=== PATIENT | female | born 1975 | race Caucasian/White ===

== ENCOUNTER → 2017-07-15 | Outpatient (CLI) | payer BC ==
[~2017-07-15] MED LIST: HYDACE5 PO; IBUPROFEN; TYLENOL
== END ==
LOC: LAB SHORT 10:57 → LAB 10:57
PROVIDERS: Obstetrics & Gynecology
DX: Z01.419 Encounter for gynecological examination (general) (routine) without abnormal findings (principal)
CPT/HCPCS: 87624; G0123

== ENCOUNTER → 2018-10-03 | Outpatient (CLI) | payer BC ==
[2018-10-05 15:06] LABS: HPV 16 Negative (Negative); HPV 18 Negative (Negative); HPV OTHER HR TYPES Negative (Negative)
== END | disposition home or self-care (01) ==
LOC: LAB 15:21 → LAB SHORT 15:21
PROVIDERS: Obstetrics & Gynecology
DX: Z01.419 Encounter for gynecological examination (general) (routine) without abnormal findings (principal)
CPT/HCPCS: 87624; G0123

== ENCOUNTER 2019-04-06 06:16 | Day surgery (SDC) | payer BC ==
[~2019-04-06] VITALS: Ht 167.6 cm; Wt 110.2 kg
[~2019-04-06 06:16] MED LIST changes: +DULO60; +Dyazide 37.5-21 EACH; +Loratadine10 MG; +MIRENA1 EACH; +NAPR500; +Norco 5-325 Ta1 EACH; +PREG50; +Robaxin750 MG; +TOPI25; +ZINC15; +Zantac150 MG
--- NOTE | 2019-04-06 08:29 | NUR ---
04/06/19 0829 Luz Maria Buckley SURGERY PERFORMED ON THE [place], LEFT RAIL UP.
== END 2019-04-06 08:35 | disposition home or self-care (01) ==
LOC: ORSCSDS 06:16
PROVIDERS: Orthopaedic Surgery
PROC: 01N50ZZ Release Median Nerve, Open Approach (ICD-10-PCS; principal; 2019-04-06 07:30)
DX: G56.01 Carpal tunnel syndrome, right upper limb (principal); E66.9 Obesity, unspecified; Z68.39 Body mass index [BMI] 39.0-39.9, adult; Z79.899 Other long term (current) drug therapy
CPT/HCPCS: J2250; J2704; J3010

== ENCOUNTER → 2021-05-12 | Outpatient (CLI) | payer BC ==
[~2021-05-12] MED LIST changes: +COCONUT OIL1000 MG PO; +Cymbalta60 MG PO; +DYAZIDE 37.5-21 EACH; +Loratadine10 MG PO; +NAPR500 PO; +PREG50 PO; +Robaxin-750750 MG PO; +TOPI25C PO; +TURMERIC 500 M1 EACH PO; +ZINC50 M2 PO; +Zantac150 MG PO
[2021-05-15 15:11] LABS: HPV 16 Negative (Negative); HPV 18 Negative (Negative); HPV OTHER HR TYPES Negative (Negative)
== END | disposition home or self-care (01) ==
LOC: LAB SHORT 10:54
PROVIDERS: Advanced Practice Midwife
DX: Z01.419 Encounter for gynecological examination (general) (routine) without abnormal findings (principal)
CPT/HCPCS: 87624; G0123

== ENCOUNTER → 2021-07-02 | Outpatient (CLI) | payer BC ==
[2021-07-03 21:06] LABS: CHLAMYDIA TRACHOMATIS, NAA Negative (Negative)
== END | disposition home or self-care (01) ==
LOC: LAB SHORT 17:07
PROVIDERS: Advanced Practice Midwife
DX: Z11.3 Encounter for screening for infections with a predominantly sexual mode of transmission (principal)
CPT/HCPCS: 87491; 87591

== ENCOUNTER → 2022-07-15 | Outpatient (CLI) | payer BC ==
[2022-07-16 15:07] LABS: HPV 16 Negative (Negative); HPV 18 Negative (Negative); HPV OTHER HR TYPES Negative (Negative)
== END | disposition home or self-care (01) ==
LOC: LAB 11:34 → LAB SHORT 11:34
PROVIDERS: Advanced Practice Midwife
DX: Z01.419 Encounter for gynecological examination (general) (routine) without abnormal findings (principal)
CPT/HCPCS: 87624; G0145